=== PATIENT | male | born 2000 | race Caucasian/White ===

== ENCOUNTER 2021-08-08 20:26 | Emergency (ER) | payer OTHER ==
[~2021-08-08] VITALS: Ht 180.3 cm; Wt 58.1 kg
== END 2021-08-08 23:54 | disposition home or self-care (01) ==
LOC: ED 20:26
DX: F10.129 Alcohol abuse with intoxication, unspecified (principal); F17.200 Nicotine dependence, unspecified, uncomplicated
CPT/HCPCS: 36415; 80053; 85025; 99284; G0480; J7030

== ENCOUNTER 2023-06-12 18:53 | Emergency (ER) | payer OTHER ==
[~2023-06-12] VITALS: Ht 180.3 cm; Wt 60.9 kg
[2023-06-12 19:47] LABS: BILIRUBIN, URINE NEGATIVE (negative); BLOOD/HGB, URINE NEGATIVE (Negative); KETONE, URINE NEGATIVE (Negative); PH, URINE 6 (5-7)
[2023-06-12 19:48] LABS: COLLECTION TYPE, URINE CLEAN CATCH; LEUK ESTERASE, URINE NEGATIVE (negative); NITRITE, URINE NEGATIVE (negative)
[2023-06-12 19:50] LABS: REFLEX CULTURE, URINE No (No)
[2023-06-12 19:50] LABS: AMPHETAMINES, URINE NEGATIVE (NEGATIVE); BARBITURATES, URINE NEGATIVE (NEGATIVE); BENZODIAZEPINE, URINE NEGATIVE (NEGATIVE); BUPRENORPHINE, URINE NEGATIVE (NEGATIVE); CANNABINOID, URINE POSITIVE (NEGATIVE); COCAINE, URINE NEGATIVE (NEGATIVE); ECSTASY, URINE NEGATIVE (NEGATIVE); FENTANYL, URINE NEGATIVE (NEGATIVE); METHADONE, URINE NEGATIVE (NEGATIVE); OPIATES, URINE NEGATIVE (NEGATIVE); OXYCODONE, URINE NEGATIVE (NEGATIVE); PHENCYCLIDINE, URINE NEGATIVE (NEGATIVE)
[2023-06-12 19:51] LABS: CASTS, URINE HYALINE 1+ \\lpf
[2023-06-12 19:55] LABS: BASOPHILS 0.3 % (0-2); EOSINOPHILS 0.6 % (0-6); HEMATOCRIT 47.1 % (35.0-50.0); HEMOGLOBIN 16.6 g/dL (12.0-18.0); LYMPHOCYTES 12.4 % (24-44); MCH 31.5 (27-36); MCHC 35.2 g/dl (30-36); MCV 89.4 fl (81-99); MONOCYTES 4.5 % (0-12); NEUTROPHILS 82.2 % (39-80); PLATELET COUNT 344 K/uL (140-440); RBC 5.27 M/ul (4.3-5.7); RDW 12.5 (10.5-15.0)
[2023-06-12 19:57] LABS: EPITHELIAL CELLS, URINE SQUAMOUS 1+ /lpf (0-1+)
[2023-06-12 20:13] LABS: ACETAMINOPHEN 0 ug/mL (10-30); ALBUMIN 5.2 g/dL (3.4-5.0); ALBUMIN/GLOBULIN RATIO 1.93 (1.1-2.4); ALCOHOL, MEDICAL <3 ng/dL (<3); ALKALINE PHOSPHATASE 80 U/L (46-116); ALT (SGPT) 28 U/L (14-59); ANION GAP 16.2 (7-21); AST (SGOT) 30 U/L (15-37); BILIRUBIN, TOTAL 0.8 ng/dL (0.2-1.0); BUN/CREATININE RATIO 12.71 (6.0-28.6); CALCIUM 9.3 mg/dL (8.5-10.1); CARBON DIOXIDE 28 mmol/L (21-32); CHLORIDE 105 mmol/L (98-107); CREATININE, SERUM 1.18 mg/dL (0.70-1.30); GLOMERULAR FILTRATION RATE,EST 89 mL/min (>60); POTASSIUM 4.2 mmol/L (3.5-5.1); PROTEIN, TOTAL 7.9 g/dL (6.4-8.2); SALICYLATE 0.7 mg/dL (2.8-20.0); TSH, 3RD GENERATION 1.825 uIU/mL (0.358-3.740); UREA NITROGEN 15 mg/dL (7-18)
[2023-06-12 20:35] VITALS: BP 117/78
== END 2023-06-12 20:35 | disposition home or self-care (01) ==
LOC: ED 18:53
PROVIDERS: Internal Medicine
DX: R45.851 Suicidal ideations (principal); F17.200 Nicotine dependence, unspecified, uncomplicated
CPT/HCPCS: 36415; 80053; 80307; 81001; 84443; 85025; 99285; G0480

== ENCOUNTER 2023-12-03 11:18 | Emergency (ER) | payer OTHER ==
[~2023-12-03] VITALS: Ht 180.3 cm; Wt 65.3 kg
[2023-12-03] MEDS ORDERED: HALOPERIDOL LACTATE 5 MG/ML VIAL IV ONE (12:00)
[2023-12-03] MEDS ORDERED: ondansetron HCL 4 MG/2 ML VIAL IV PRN (12:00)
[2023-12-03] MEDS ORDERED: diphenhydrAMINE HCL 50 MG/ML VIAL IV ONE (12:00)
[2023-12-03] MEDS ORDERED: SODIUM CHLORIDE 0.9% 1,000 ML IV ONE (12:00)
[2023-12-03] MEDS ORDERED: ondansetron HCL 4 MG/2 ML VIAL IV ONE (12:00)
[2023-12-03 12:23] LABS: ALBUMIN 4.5 g/dL (3.4-5.0); ALBUMIN/GLOBULIN RATIO 1.55 (1.1-2.4); ANION GAP 14.7 (7-21); BILIRUBIN, TOTAL 0.7 ng/dL (0.2-1.0); BUN/CREATININE RATIO 15.95 (6.0-28.6); CALCIUM 8.8 mg/dL (8.5-10.1); CREATININE, SERUM 0.94 mg/dL (0.70-1.30); POTASSIUM 3.7 mmol/L (3.5-5.1); PROTEIN, TOTAL 7.4 g/dL (6.4-8.2)
[2023-12-03 12:57] LABS: BILIRUBIN, URINE NEGATIVE (negative); BLOOD/HGB, URINE NEGATIVE (Negative); KETONE, URINE NEGATIVE (Negative); LEUK ESTERASE, URINE NEGATIVE (negative); NITRITE, URINE NEGATIVE (negative)
[2023-12-03 13:23] VITALS: BP 126/67
== END 2023-12-03 13:48 | disposition home or self-care (01) ==
LOC: ED 11:18
PROVIDERS: Emergency Medicine
DX: R11.15 Cyclical vomiting syndrome unrelated to migraine (principal)
CPT/HCPCS: 36415; 80053; 81003; 83735; 85025; 96374; 96375; 99284-25; J1200; J1630; J2405; J7030